=== PATIENT | male | born 1950 | race Two or more races ===

== ENCOUNTER 2016-05-19 07:30 | Outpatient (RCR) | payer BC, OTHER ==
[~2016-05-19 07:30] MED LIST: NKM
== END 2016-06-11 | disposition home or self-care (01) ==
LOC: PTY 07:30
DX: M54.41 Lumbago with sciatica, right side (principal); M75.21 Bicipital tendinitis, right shoulder
CPT/HCPCS: 97110; 97140; 97161; G0283

== ENCOUNTER 2017-02-08 10:30 | Outpatient (RCR) | payer OTHER | END 2017-02-11 | disposition home or self-care (01) | LOC: PTY 10:30 | DX: M75.41 Impingement syndrome of right shoulder (principal); M67.921 Unspecified disorder of synovium and tendon, right upper arm ==

== ENCOUNTER 2017-02-20 08:15 | Outpatient (RCR) | payer OTHER | END 2017-03-14 | disposition home or self-care (01) | LOC: PTY 08:15 | DX: M75.41 Impingement syndrome of right shoulder (principal); M67.921 Unspecified disorder of synovium and tendon, right upper arm ==

== ENCOUNTER 2017-03-19 08:23 | Outpatient (RCR) | payer OTHER | END 2017-04-11 | disposition home or self-care (01) | LOC: PTY 08:23 | DX: M75.41 Impingement syndrome of right shoulder (principal); M67.921 Unspecified disorder of synovium and tendon, right upper arm ==

== ENCOUNTER 2017-04-17 08:20 | Outpatient (RCR) | payer OTHER | END 2017-05-12 | disposition home or self-care (01) | LOC: PTY 08:20 | DX: M75.41 Impingement syndrome of right shoulder (principal); M67.921 Unspecified disorder of synovium and tendon, right upper arm ==